=== PATIENT | male | born 1930 | race Caucasian/White ===

== ENCOUNTER → 2016-08-19 | Outpatient (CLI) | payer MEDICARE ==
[~2016-08-19] MED LIST: AMARYL 2MG TABLE2 MG PO; AMLODIPINE BES10 MG PO; ASPIRIN325 M1 PO; BENAZEPRIL40 MG PO; HYDROCHLOROTH12.5 M1 PO; METOPROLOL SUCC50 M1 PO; ULTRAM50 MG PO; ZOCOR20 MG PO
--- NOTE | 2016-08-19 16:44 | RADIOLOGY REPORT PS360 ---
CT ABD PELVIS W/O CONTRAST Ordering Physician: SATHYA Lylesatient Age: 85 years: Male HISTORY: HEMATURIA, PAINFUL URINATION TECHNIQUE: Helical CT scanning performed at of pelvis with no oral or IV contrast utilized. Multiplanar reconstruction CT workstation COMPARISON. Previous CT abdomen pelvis July 2013. FINDINGS The lung bases appear clear with no active disease. Prominent cardiomegaly. Linear scarring at posterior left lung base. ABDOMEN PELVIS. Lack of oral and IV contrast decreases sensitivity Liver, spleen, pancreas unremarkable. Gallbladder. Contracted but no calcified gallstones. Adrenals satisfactory. Kidneys. No urinary tract calculi nor obstruction. Left kidney stable benign-appearing cyst midportion 2.1 cm size. It a smaller 12 mm cyst is seen at upper pole left kidney.. The stranding about the lower pole left kidney is unchanged. Right kidney.. 2 cm cyst upper pole right kidney. Slightly larger but appears benign. Ureters appear normal in course and caliber. No urinary tract obstruction or calculi. Pelvis. Mild diffuse thickening of urinary bladder most evident posteriorly at its base. Prostate appears mildly enlarged indenting the base the bladder. Measuring 4.7 cm. Transverse Slightly ill-defined margins at right prostate. Warrants clinical correlation although I would note the patient had a very similar pattern in 2014. Calcified node at the left anterior abdomen is stable On further review there is a small fat-containing right inguinal hernia with bulging of fat toward right inguinal canal. Similar to thousand 14. No bowel dilatation or obstruction. Moderate fluid throughout the small bowel with some scattered small air-fluid levels. Stomach unremarkable. Large bowel with generous stool throughout the colon slightly increased throughout reflect mild constipation. Osseous. 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 No focal destructive lesion process. Levoscoliosis.. May warrant correlation with PSA. Moderate size central vessels. No adenopathy along the pelvic sidewall. No hernias. IMPRESSION: . 1. No discrete acute findings abdomen or pelvis. 2. No urinary tract calculi nor obstruction ..Benign-appearing Renal cysts bilateral. 3. When compared to 2014 perhaps slight additional thickening urinary bladder. Cannot exclude cystitis. Moderate to slightly enlarged prostate which indents the base the bladder. Right margin the prostate irregular but most likely stable 4. Increase stool throughout colon suggesting mild constipation. 5. Small hiatal hernia. Cardiomegaly. Small stable right inguinal hernia
== END ==
LOC: RAD 13:54
DX: R31.9 Hematuria, unspecified (principal); R30.9 Painful micturition, unspecified

== ENCOUNTER → 2016-11-18 | Outpatient (CLI) | payer MEDICARE ==
[2016-11-18 11:30] LABS: LYMPH # 1.4 K/mm3 (0.7-4.5); LYMPH % 24.3 % (10-50)
[2016-11-18 11:33] LABS: BUN 39 mg/dL (7-18)
[2016-11-18 11:34] LABS: GFR (ESTIMATED) 34 ML/MIN (>60); HEMOGLOBIN 12.5 g/dL (14.1-18.0)
== END ==
LOC: LAB 11:06
PROVIDERS: Internal Medicine
DX: A08.4 Viral intestinal infection, unspecified (principal); E11.59 Type 2 diabetes mellitus with other circulatory complications; I10 Essential (primary) hypertension